=== PATIENT | male | born 1970 | race Caucasian/White ===

== ENCOUNTER 2019-02-28 17:15 | Outpatient (REF) | payer MEDICAID, SELFPAY ==
[2019-02-28 21:50] LABS: Abs Immature Grans 0.02 k/cumm (0.0-0.09); Absolute Basophil Count 0.02 k/cumm (0.0-0.2); Absolute Eosinophil Count 0.08 k/cumm (0.0-0.7); Absolute Lymphocyte Count 1.89 k/cumm (1.2-3.4); Absolute Monocyte Count 0.71 k/cumm (0.11-0.7); Basophils % 0.3; Eosinophils % 1.1; HCT 44.7 % (40.0-50.0); HGB 14.9 g/dL (13.5-17.5); Immature Grans % 0.3; Lymphocytes % 25.5; Mean Corp. HGB Concentration 33.3 g/dL (32.0-36.0); Mean Corpuscular Volume 87.1 fL (80-95); Mean Platelet Volume 11.6 fL (8.0-11.0); Monocytes % 9.6; Neutrophils % 63.2; Platelet Count 219 x1000/uL (130-400); RBC 5.13 m/cumm (4.50-6.00); RBC Distribution Width 13.4 % (11.8-14.1); White Blood Cell Count 7.42 k/cumm (4.4-10.8)
[2019-02-28 22:21] LABS: ALT 47 U/L (12-78); AST 28 U/L (15-37); Albumin 3.9 g/dL (3.4-5.0); Alkaline Phosphatase 103 U/L (46-116); Anion Gap 12.4 mmol/L (3-11); BUN 25 mg/dL (7-18); Bilirubin, Total 0.4 mg/dL (0.2-1.0); CO2 23.6 mmol/L (21.0-32.0); CREATININE 0.99 mg/dL (0.70-1.30); Calcium 8.9 mg/dL (8.5-10.1); Chloride 107 mmol/L (98-107); Glucose 89 mg/dL (70-100); Sodium 143 mmol/L (136-145); Total Protein 7.4 g/dL (6.4-8.2)
== END 2019-02-28 17:35 ==
LOC: NCHCN 17:15
PROVIDERS: PCP Family Medicine; Visit Provider Family Medicine
DX: I10 Essential (primary) hypertension (principal); H20.12 Chronic iridocyclitis, left eye; Z79.899 Other long term (current) drug therapy
CPT/HCPCS: 80053; 85025

== ENCOUNTER 2019-12-16 09:53 | Outpatient (REF) | payer MEDICAID, SELFPAY ==
[2019-12-16 20:39] LABS: Abs Immature Grans 0.03 k/cumm (0.0-0.09); Absolute Basophil Count 0.02 k/cumm (0.0-0.2); Absolute Eosinophil Count 0.08 k/cumm (0.0-0.7); Absolute Monocyte Count 0.69 k/cumm (0.11-0.7); Absolute Neutrophil Count 5.03 k/cumm (1.2-6.7); Basophils % 0.2; HCT 44.9 % (40.0-50.0); HGB 15.1 g/dL (13.5-17.5); Immature Grans % 0.4 %; Lymphocytes % 29.1; Mean Corp. HGB Concentration 33.6 g/dL (32.0-36.0); Mean Corpuscular Hemoglobin 29.4 pg (27.0-33.0); Mean Corpuscular Volume 87.4 fL (80-95); Mean Platelet Volume 11.6 fL (8.0-11.0); Monocytes % 8.4; Neutrophils % 60.9; Platelet Count 212 x1000/uL (130-400); RBC 5.14 m/cumm (4.50-6.00); RBC Distribution Width 13.4 % (11.8-14.1); White Blood Cell Count 8.25 k/cumm (4.4-10.8)
[2019-12-16 20:49] LABS: ALT 42 U/L (16-63); AST 22 U/L (15-37); Albumin 3.9 g/dL (3.4-5.0); Alkaline Phosphatase 91 U/L (46-116); Anion Gap 9.5 mmol/L (3-11); BUN 25 mg/dL (7-18); Bilirubin, Total 0.6 mg/dL (0.2-1.0); CO2 27.5 mmol/L (21.0-32.0); Calcium 8.8 mg/dL (8.5-10.1); Calculated LDL 143 mg/dL (<100); Chloride 103 mmol/L (98-107); Cholesterol 206 mg/dL (<200); Glucose 101 mg/dL (74-106); HDL Cholesterol 46 mg/dL (40-60); Potassium 3.9 mmol/L (3.5-5.1); Sodium 140 mmol/L (136-145); Total Protein 7.4 g/dL (6.4-8.2); Triglyceride 88 mg/dL (<150)
[2019-12-16 20:52] LABS: Hemoglobin A1C 5.6 % (3.8-5.6)
[2019-12-16 21:10] LABS: Vitamin D 25 Total 17.3 ng/ml (30-100)
== END 2019-12-16 10:13 ==
LOC: NCHCN 09:53
PROVIDERS: PCP Family Medicine; Visit Provider Family Medicine
DX: I10 Essential (primary) hypertension (principal); R73.03 Prediabetes; Z86.79 Personal history of other diseases of the circulatory system; Z51.81 Encounter for therapeutic drug level monitoring; E66.01 Morbid (severe) obesity due to excess calories; Z00.00 Encounter for general adult medical examination without abnormal findings
CPT/HCPCS: 80053; 80061; 82306; 83036; 85025

== ENCOUNTER 2020-06-04 09:13 | Outpatient (REF) | payer MEDICAID, SELFPAY ==
[2020-06-04 21:09] LABS: Abs Immature Grans 0.02 10^3/uL (0.0-0.06); Absolute Basophil Count 0.03 10^3/uL (0.0-0.2); Absolute Eosinophil Count 0.06 10^3/uL (0.0-0.7); Absolute Lymphocyte Count 1.54 10^3/uL (1.2-3.4); Absolute Monocyte Count 0.62 10^3/uL (0.1-0.8); Absolute Neutrophil Count 4.45 10^3/uL (1.2-6.7); Basophils % 0.4; Eosinophils % 0.9; HCT 43.7 % (40.0-50.0); HGB 14.3 g/dL (13.5-17.5); Immature Grans % 0.3; Lymphocytes % 22.9; MCH 28.7 pg (27.0-33.0); MCHC 32.7 % (32.0-36.0); MCV 87.6 fL (80-95); MPV 11.8 fL (8.0-11.0); Monocytes % 9.2; Neutrophils % 66.3; Nucleated RBC 0 %; Platelet Count 217 10^3/uL (130-400); RBC 4.99 10^6/uL (4.36-5.78); RDW 13.3 % (11.8-14.1); RDW-SD 42.5 fL; WBC 6.72 10^3/uL (4.4-10.8)
[2020-06-04 21:24] LABS: ALT 44 U/L (16-63); AST 20 U/L (15-37); Albumin 3.7 g/dL (3.4-5.0); Alkaline Phosphatase 72 U/L (46-116); Anion Gap 9.7 mmol/L (3-11); BUN 20 mg/dL (7-18); Bilirubin, Total 0.6 mg/dL (0.2-1.0); CO2 25.3 mmol/L (21.0-32.0); CREATININE 0.97 mg/dL (0.70-1.30); Calcium 8.7 mg/dL (8.5-10.1); Chloride 105 mmol/L (98-107); Glucose 106 mg/dL (74-106); Potassium 3.7 mmol/L (3.5-5.1); Sodium 140 mmol/L (136-145); Total Protein 6.9 g/dL (6.4-8.2)
[2020-06-04 21:36] LABS: Hemoglobin A1C 5.5 % (<5.7)
[2020-06-04 21:45] LABS: Vitamin D 25 Total 27.4 ng/ml (30-100)
== END 2020-06-04 09:33 ==
LOC: NCHCN 09:13
PROVIDERS: PCP Family Medicine; Visit Provider Family Medicine
DX: I10 Essential (primary) hypertension (principal); E55.9 Vitamin D deficiency, unspecified; R73.03 Prediabetes; H20.12 Chronic iridocyclitis, left eye; Z86.79 Personal history of other diseases of the circulatory system; Z51.81 Encounter for therapeutic drug level monitoring
CPT/HCPCS: 80053; 82306; 83036; 85025

== ENCOUNTER 2020-10-08 14:32 | Outpatient (REF) | payer MEDICAID, SELFPAY ==
[2020-10-08 13:51] LABS: HCT 43.5 % (40.0-50.0); HGB 14.4 g/dL (13.5-17.5); MCH 28.2 pg (27.0-33.0); MCHC 33.1 % (32.0-36.0); MCV 85.3 fL (80-95); MPV 11.5 fL (8.0-11.0); Platelet Count 217 10^3/uL (130-400); RDW 12.8 % (11.8-14.1); RDW-SD 39.7 fL; WBC 6.55 10^3/uL (4.4-10.8)
[2020-10-08 14:08] LABS: ALT 41 U/L (16-63); AST 18 U/L (15-37); Albumin 3.8 g/dL (3.4-5.0); Alkaline Phosphatase 85 U/L (46-116); Anion Gap 10.2 mmol/L (3-11); BUN 19 mg/dL (7-18); Bilirubin, Total 0.4 mg/dL (0.2-1.0); CO2 24.8 mmol/L (21.0-32.0); CREATININE 0.9 mg/dL (0.70-1.30); Calcium 9.2 mg/dL (8.5-10.1); Chloride 104 mmol/L (98-107); Glucose 108 mg/dL (74-106); Potassium 3.9 mmol/L (3.5-5.1); Sodium 139 mmol/L (136-145); Total Protein 7.2 g/dL (6.4-8.2)
== END 2020-10-08 14:33 | disposition home or self-care (01) ==
LOC: NCHCN 14:32
PROVIDERS: PCP Family Medicine; Visit Provider Family Medicine
DX: E55.9 Vitamin D deficiency, unspecified (principal); R73.03 Prediabetes; Z51.81 Encounter for therapeutic drug level monitoring
CPT/HCPCS: 80053; 85027

== ENCOUNTER 2021-01-12 10:25 | Outpatient (REF) | payer MEDICAID, SELFPAY ==
[2021-01-12 13:57] LABS: HCT 43.1 % (40.0-50.0); HGB 14.4 g/dL (13.5-17.5); MCH 29.4 pg (27.0-33.0); MCHC 33.4 % (32.0-36.0); MCV 88.1 fL (80-95); MPV 11.1 fL (8.0-11.0); Platelet Count 222 10^3/uL (130-400); RBC 4.89 10^6/uL (4.36-5.78); RDW-SD 42.2 fL; WBC 6.94 10^3/uL (4.4-10.8)
[2021-01-12 14:13] LABS: ALT 47 U/L (16-63); AST 22 U/L (15-37); Albumin 3.9 g/dL (3.4-5.0); Alkaline Phosphatase 87 U/L (46-116); Anion Gap 10.8 mmol/L (3-11); BUN 24 mg/dL (7-18); Bilirubin, Total 0.5 mg/dL (0.2-1.0); CO2 25.2 mmol/L (21.0-32.0); CREATININE 0.9 mg/dL (0.70-1.30); Calcium 9.2 mg/dL (8.5-10.1); Chloride 104 mmol/L (98-107); Glucose 104 mg/dL (74-106); Potassium 4.1 mmol/L (3.5-5.1); Sodium 140 mmol/L (136-145); Total Protein 7.4 g/dL (6.4-8.2)
[2021-01-12 14:21] LABS: Hemoglobin A1C 5.6 % (<5.7)
[2021-01-14 01:16] LABS: Vitamin D 25 Total 25.7 ng/mL (30-100)
== END 2021-01-12 10:26 | disposition home or self-care (01) ==
LOC: NCHCN 10:25
PROVIDERS: PCP Family Medicine; Visit Provider Family Medicine
DX: R73.03 Prediabetes (principal); E55.9 Vitamin D deficiency, unspecified; I10 Essential (primary) hypertension; E66.01 Morbid (severe) obesity due to excess calories
CPT/HCPCS: 80053; 82306; 85027; 83036

== ENCOUNTER 2021-04-13 13:36 | Outpatient (REF) | payer MEDICAID, SELFPAY ==
[2021-04-13 14:28] LABS: HCT 44.6 % (40.0-50.0); HGB 14.8 g/dL (13.5-17.5); MCH 29.1 pg (27.0-33.0); MCHC 33.2 % (32.0-36.0); MCV 87.6 fL (80-95); MPV 11.8 fL (8.0-11.0); Platelet Count 207 10^3/uL (130-400); RBC 5.09 10^6/uL (4.36-5.78); RDW-SD 41.8 fL; WBC 7.23 10^3/uL (4.4-10.8)
[2021-04-13 14:39] LABS: ALT 52 U/L (16-63); AST 24 U/L (15-37); Albumin 3.9 g/dL (3.4-5.0); Alkaline Phosphatase 82 U/L (46-116); Anion Gap 9.3 mmol/L (3-11); BUN 24 mg/dL (7-18); Bilirubin, Total 0.3 mg/dL (0.2-1.0); CO2 24.7 mmol/L (21.0-32.0); Calcium 9.2 mg/dL (8.5-10.1); Chloride 107 mmol/L (98-107); Glucose 138 mg/dL (74-106); Sodium 141 mmol/L (136-145); Total Protein 7.3 g/dL (6.4-8.2)
== END 2021-04-13 13:37 | disposition home or self-care (01) ==
LOC: NCHCN 13:36
PROVIDERS: PCP Family Medicine; Visit Provider Family Medicine
DX: I10 Essential (primary) hypertension (principal); Z51.81 Encounter for therapeutic drug level monitoring
CPT/HCPCS: 80053; 85027

== ENCOUNTER 2021-07-06 14:41 | Outpatient (REF) | payer MEDICAID, SELFPAY ==
[2021-07-06 17:38] LABS: HCT 45.7 % (40.0-50.0); HGB 14.8 g/dL (13.5-17.5); MCH 28.9 pg (27.0-33.0); MCHC 32.4 % (32.0-36.0); MCV 89.3 fL (80-95); MPV 11.5 fL (8.0-11.0); Platelet Count 221 10^3/uL (130-400); RBC 5.12 10^6/uL (4.36-5.78); RDW 12.6 % (11.8-14.1); RDW-SD 41.4 fL; WBC 7.56 10^3/uL (4.4-10.8)
[2021-07-06 17:46] LABS: ALT 48 U/L (16-63); AST 19 U/L (15-37); Alkaline Phosphatase 83 U/L (46-116); BUN 20 mg/dL (7-18); Bilirubin, Total 0.5 mg/dL (0.2-1.0); CREATININE 1.1 mg/dL (0.70-1.30); Calcium 9.1 mg/dL (8.5-10.1); Calculated LDL 162 mg/dL (<100); Chloride 104 mmol/L (98-107); Cholesterol 235 mg/dL (<200); Glucose 112 mg/dL (74-106); HDL Cholesterol 54 mg/dL (40-60); Potassium 3.7 mmol/L (3.5-5.1); Sodium 140 mmol/L (136-145); Total Protein 7.4 g/dL (6.4-8.2); Triglyceride 97 mg/dL (<150)
[2021-07-06 17:56] LABS: Hemoglobin A1C 5.5 % (<5.7)
[2021-07-08 01:34] LABS: Vitamin D 25 Total 23.7 ng/mL (30-100)
== END 2021-07-06 14:42 | disposition home or self-care (01) ==
LOC: NCHCN 14:41
PROVIDERS: PCP Family Medicine; Visit Provider Family Medicine
DX: E55.9 Vitamin D deficiency, unspecified (principal); I10 Essential (primary) hypertension; R73.03 Prediabetes; E66.01 Morbid (severe) obesity due to excess calories; Z51.81 Encounter for therapeutic drug level monitoring
CPT/HCPCS: 80053; 80061; 82306; 85027; 83036

== ENCOUNTER 2023-05-16 19:41 | Outpatient (REF) | payer MEDICAID, SELFPAY ==
[2023-05-16 17:12] LABS: HCT 46.9 % (40.0-50.0); HGB 15.4 g/dL (13.5-17.5); MCH 28.5 pg (27.0-33.0); MCHC 32.8 % (32.0-36.0); MCV 87 fL (80-95); MPV 11.7 fL (8.0-11.0); Platelet Count 241 10^3/uL (130-400); WBC 8.05 10^3/uL (4.4-10.8)
[2023-05-16 17:19] LABS: ALT 39 U/L (16-63); AST 23 U/L (15-37); Albumin 3.8 g/dL (3.4-5.0); Alkaline Phosphatase 90 U/L (46-116); Anion Gap 10.3 mmol/L (3-11); BUN 19 mg/dL (7-18); Bilirubin, Total 0.5 mg/dL (0.2-1.0); CO2 23.7 mmol/L (21.0-32.0); CREATININE 1.1 mg/dL (0.70-1.30); Calcium 9.2 mg/dL (8.5-10.1); Chloride 105 mmol/L (98-107); Estimated GFR 81.78 (mL/min/1.73m2); Glucose 137 mg/dL (74-106); Potassium 3.8 mmol/L (3.5-5.1); Sodium 139 mmol/L (136-145); Total Protein 7.9 g/dL (6.4-8.2)
[2023-05-16 18:11] LABS: Hemoglobin A1C 5.5 % (<5.7)
[2023-05-16 18:49] LABS: Vitamin D 25 Total 29.3 ng/mL (30-100)
== END 2023-05-16 19:42 | disposition home or self-care (01) ==
LOC: NCHCN 19:41
PROVIDERS: PCP Family Medicine; Visit Provider Family Medicine
DX: I10 Essential (primary) hypertension (principal); R73.03 Prediabetes; E55.9 Vitamin D deficiency, unspecified
CPT/HCPCS: 80053; 82306; 85027; 83036

== ENCOUNTER 2023-05-19 15:04 | Outpatient (REF) | payer MEDICAID, SELFPAY ==
[2023-05-19 15:53] LABS: BUN 19 mg/dL (7-18); Calcium 9.4 mg/dL (8.5-10.1); Chloride 103 mmol/L (98-107); Estimated GFR 91.69 (mL/min/1.73m2); Glucose 119 mg/dL (74-106); Potassium 4.2 mmol/L (3.5-5.1); Sodium 137 mmol/L (136-145)
== END 2023-05-19 15:05 | disposition home or self-care (01) ==
LOC: NCHCN 15:04
PROVIDERS: PCP Family Medicine; Visit Provider Family Medicine
DX: I10 Essential (primary) hypertension (principal)
CPT/HCPCS: 80048

== ENCOUNTER 2023-10-19 12:15 | Outpatient (REF) | payer MEDICAID, SELFPAY ==
[2023-10-19 14:56] LABS: HCT 44.5 % (40.0-50.0); HGB 14.8 g/dL (13.5-17.5); MCH 29.3 pg (27.0-33.0); MCHC 33.3 % (32.0-36.0); MCV 88 fL (80-95); MPV 11.4 fL (8.0-11.0); Platelet Count 218 10^3/uL (130-400); RBC 5.05 10^6/uL (4.36-5.78); RDW 12.8 % (11.8-14.1); RDW-SD 41.1 fL; WBC 9.06 10^3/uL (4.4-10.8)
[2023-10-19 15:32] LABS: ALT 52 U/L (16-63); AST 24 U/L (15-37); Albumin 3.8 g/dL (3.4-5.0); Alkaline Phosphatase 92 U/L (46-116); Anion Gap 10.8 mmol/L (3-11); BUN 19 mg/dL (7-18); Bilirubin, Total 0.5 mg/dL (0.2-1.0); CO2 24.2 mmol/L (21.0-32.0); CREATININE 0.9 mg/dL (0.70-1.30); Calcium 9.3 mg/dL (8.5-10.1); Chloride 106 mmol/L (98-107); Estimated GFR 104.05 (mL/min/1.73m2); Glucose 123 mg/dL (74-106); Potassium 4.2 mmol/L (3.5-5.1); Sodium 141 mmol/L (136-145); Total Protein 7.9 g/dL (6.4-8.2)
[2023-10-19 16:10] LABS: Vitamin D 25 Total 26.7 ng/mL (30-100)
[2023-10-19 17:27] LABS: Hemoglobin A1C 5.3 % (<5.7)
== END 2023-10-19 12:16 | disposition home or self-care (01) ==
LOC: NCHCN 12:15
PROVIDERS: PCP Family Medicine; Visit Provider Family Medicine
DX: Z51.81 Encounter for therapeutic drug level monitoring (principal); R73.03 Prediabetes; E66.9 Obesity, unspecified
CPT/HCPCS: 80053; 82306; 85027; 83036

== ENCOUNTER 2024-05-10 15:17 | Outpatient (REF) | payer MEDICAID, SELFPAY ==
[2024-05-10 15:04] LABS: HCT 45.1 % (40.0-50.0); HGB 14.9 g/dL (13.5-17.5); MCH 29.4 pg (27.0-33.0); MCV 89 fL (80-95); MPV 11.5 fL (8.0-11.0); Platelet Count 223 10^3/uL (130-400); RBC 5.07 10^6/uL (4.36-5.78); RDW 12.8 % (11.8-14.1); RDW-SD 41.8 fL; WBC 9.28 10^3/uL (4.4-10.8)
--- OUTSIDE RECORDS SUMMARY | 2024-05-10 15:18 | XMS_ITS ---
Author Organization Unknown Address [address] [place] [phone] Phone Care Team Providers Care Packaging Design Engineer Name Role Phone YASMINE Moreno Attending Unavailable Results [facility]* - Bhanu ect Date/Time: 10/26/2021 09:45 [facility] ID: [id number] [address] [place], [place], [phone] LOINC: 10383-6 Test Value Unit Reference Range Code Code System Flag Tier- TRAVEL 61493-4 LOINC SARS COV2 RNA: NEGATIVE REFERENCE RANGE: NEGAT 03462-1 L OINC Social History Type Status Start Date End Date Code Code Syst em Smoking History Former smoker [id number] SNOMED CT Sex Male Medications Medication Start Date End Date Route Frequency Dose Code Code System Medication Instructions Home Meds Lisinopril 20MG Oral Tablet 02/10/2016 Unknown ORAL DAILY 20 MILLIGRAMS 564850 RxNorm TAKE 20 MILLIGRAMS ORAL DAILY DUREZOL 0.05% EYE DROPS 02/10/2016 Unknown OPHTHALMIC DAILY [address] 1 DROP OPHTHALMIC DAILY ASPIRIN 81MG ORAL TABLET 02/10/2016 Unknown ORAL DAILY 81 MILLIGRAMS RxNorm TAKE 81 MILLIGRAMS ORAL DAILY UNKNOWN BP MED 02/10/2016 Unknown ORAL DAILY 1 RxNorm TAKE 1 ORAL DAILY Hospital Discharge Instructions Should you have any questions prior to discharge, please contact a member of your healthcare team. If you have left the hospital and have any questions, please contact your primary care physician. Reason For Referral No Data Found Allergies and Adverse Reactions Allergy Substance Reaction Severity Start Date Concern Status Co de Code System No Known Allergies Moderate Active Plan of Treatment TRAVEL 12/09/2021 TRAVEL 10/26/2021 TRAVEL 07/20/2021 EXPOSURE 06/25/2021 Encounters Encounter Diagnosis Start Date Code Code Sys tem CONTACT WITH AND SUSPECTED EXPOSURE TO COVID-19 2021 SNOMED-CT Personal Care Team Section Performer Name Performer Role Active Date Inactive Da te
--- OUTSIDE RECORDS SUMMARY | 2024-05-10 15:18 | XMS_ITS ---
Author Organization Unknown Address [address] [place], [place] [phone] Phone Care Team Providers Care Public Speaking Instructor Name Role Phone CALLI Becker Attending Unavailable YASMINE Moreno Primary Unavailable Results [facility]* - Bhanu ect Date/Time: 12/09/2021 10:49 [facility] ID: [id number] [address] [place], [place], [phone] LOINC: 72563-4 Test Value Unit Reference Range Code Code System Flag Tier- TRAVEL 71911-1 LOINC SARS COV2 RNA: NEGATIVE REFERENCE RANGE: NEGAT 36247-8 L OINC Social History Type Status Start Date End Date Code Code Syst em Smoking History Former smoker 3347200 SNOMED CT Sex Male Medications Medication Start Date End Date Route Frequency Dose Code Code System Medication Instructions Home Meds Lisinopril 20MG Oral Tablet 02/10/2016 Unknown ORAL DAILY 20 MILLIGRAMS 749435 RxNorm TAKE 20 MILLIGRAMS ORAL DAILY DUREZOL [...] Diagnosis Start Date Code Code Sys tem Exposure to SARS-CoV-2 12/09/2021 [id number] LARISSA D-CT Personal Care Team Section Performer Name Performer Role Active Date Inactive Da te
--- OUTSIDE RECORDS SUMMARY | 2024-05-10 15:19 | XMS_ITS ---
Author Organization Unknown Address [address] [place] [phone] Phone Care Team Providers Care Railway Track Plant Operator Name Role Phone KAELYN BARTHOLOMEW Attending Unavailable YASMINE CARMONA MD Primary Unavailable Results ANKLE RIGHT 3V - Completed: 04/05/2021 09:03 LOINC: RIGHT ANKLE Three views were obtained. The ankle mortise appears fairly well maintained. The cartilaginous joint spaces of the visualized joints of the hindfoot appear intact. There is minimal marginal osteophyte formation of the joints of the ankle. No other significant bony or soft tissue abnormality seen. 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 Dictated by: LAURE LANDRY M.D. RADIOLOGIST Transcribed by: [facility] [place]05[place]/11:54 D 04/05/2021 08:42:14 [id number] Electronically Reviewed and Signed By: LORE LANDRY M.D. RADIOLOGIST 04/05/21 12:43 Copy for: KAELYN BARTHOLOMEW via link Copy for: YASMINE CARMONA MD via link Social History Type Status Start Date End Date Code Code Syst em Smoking History Former smoker [id number] SNOMED CT Sex Male Medications Medication Start Date End Date Route Frequency Dose Code Code System Medication Instructions Home Meds Lisinopril 20MG Oral Tablet 02/10/2016 Unknown ORAL DAILY 20 MILLIGRAMS 638503 RxNorm TAKE 20 MILLIGRAMS ORAL DAILY DUREZOL [...] Diagnosis Start Date Code Code Sys tem Primary osteoarthritis, right ankle and foot 1 SNOMED-CT Personal Care Team Section Performer Name Performer Role Active Date Inactive Da te
[2024-05-10 15:28] LABS: ALT 53 U/L (16-63); AST 25 U/L (15-37); Albumin 3.9 g/dL (3.4-5.0); Alkaline Phosphatase 95 U/L (46-116); Anion Gap 8.4 mmol/L (3-11); BUN 22 mg/dL (7-18); Bilirubin, Total 0.38 mg/dL (0.2-1.0); CO2 24.6 mmol/L (21.0-32.0); CREATININE 1.1 mg/dL (0.70-1.30); Calcium 9.3 mg/dL (8.5-10.1); Calculated LDL 145 mg/dL (<100); Chloride 105 mmol/L (98-107); Cholesterol 217 mg/dL (<200); Estimated GFR 81.28 (mL/min/1.73m2); Glucose 141 mg/dL (74-106); HDL Cholesterol 46 mg/dL (40-60); Hemoglobin A1C 5.6 % (<5.7); Sodium 138 mmol/L (136-145); Total Protein 7.8 g/dL (6.4-8.2); Triglyceride 131 mg/dL (<150); Vitamin D 25 Total 42.2 ng/mL (30-100)
== END 2024-05-10 15:18 | disposition home or self-care (01) ==
LOC: NCHCN 15:17
PROVIDERS: PCP Family Medicine; Visit Provider Family Medicine
DX: I10 Essential (primary) hypertension (principal); R73.03 Prediabetes; E55.9 Vitamin D deficiency, unspecified
CPT/HCPCS: 80053; 80061; 82306; 85027; 83036

== ENCOUNTER 2025-01-14 16:35 | Outpatient (REF) | payer MEDICAID, SELFPAY ==
[2025-01-14 22:03] LABS: HCT 47.9 % (40.0-50.0); HGB 16.1 g/dL (13.5-17.5); MCH 28.6 pg (27.0-33.0); MCHC 33.6 % (32.0-36.0); MCV 85 fL (80-95); MPV 11.4 fL (8.0-11.0); Platelet Count 269 10^3/uL (130-400); RBC 5.63 10^6/uL (4.36-5.78); RDW 13.3 % (11.8-14.1); RDW-SD 41.4 fL; WBC 11.05 10^3/uL (4.4-10.8)
[2025-01-14 22:26] LABS: Hemoglobin A1C 5.3 % (<5.7)
[2025-01-14 22:30] LABS: ALT 33 U/L (16-63); AST 20 U/L (15-37); Albumin 4.1 g/dL (3.4-5.0); Alkaline Phosphatase 99 U/L (46-116); BUN 24 mg/dL (7-18); Bilirubin, Total 0.5 mg/dL (0.2-1.0); Calcium 9.9 mg/dL (8.5-10.1); Chloride 103 mmol/L (98-107); Estimated GFR 90.56 (mL/min/1.73m2); Glucose 111 mg/dL (74-106); Potassium 4.4 mmol/L (3.5-5.1); Sodium 138 mmol/L (136-145); Total Protein 7.9 g/dL (6.4-8.2)
== END 2025-01-14 16:36 | disposition home or self-care (01) ==
LOC: NCHCN 16:35
PROVIDERS: PCP Family Medicine; Visit Provider Family Medicine
DX: Z51.81 Encounter for therapeutic drug level monitoring (principal); R73.03 Prediabetes; Z12.5 Encounter for screening for malignant neoplasm of prostate
CPT/HCPCS: 80053; 84153; 85027; 83036

== ENCOUNTER 2025-01-16 15:17 | Outpatient (REF) | payer MEDICAID, SELFPAY ==
[2025-01-16 16:40] LABS: TSH (W/Ref FT4) 1.32 uIU/mL (0.36-3.74)
[2025-01-28 13:04] LABS: Testosterone, Total 384 ng/dL (240-950)
== END 2025-01-16 15:18 | disposition home or self-care (01) ==
LOC: NCHCN 15:17
PROVIDERS: PCP Family Medicine; Visit Provider Family Medicine
DX: F52.21 Male erectile disorder (principal)
CPT/HCPCS: 84402; 84403; 84443